=== PATIENT | female | born 1940 | race Caucasian/White ===

== ENCOUNTER → 2020-01-07 09:00 | Outpatient (CLI) | payer MEDICARE, OTHER, SELFPAY ==
[2015-03-10 17:43] VITALS: BMI 34.5
--- NOTE | 2020-01-07 09:18 | RAD_ITS ---
STUDY: X-RAY - ABDOMEN/PELVIS REASON FOR EXAM: Female, 79 years old. Pt states checkup for right kidney stones, left kidney removed TECHNIQUE: AP supine view. COMPARISON: None. FINDINGS: Normal visualized lung bases. Fecal content throughout the colon suggesting constipation. No bowel obstruction. There is no demonstrated free abdominal air. Multiple radiopaque calculi in the right kidney. Postsurgical absence of the left kidney with overlying surgical clips. Normal soft tissue structures. Bridging right lateral marginal spurs at L4-L5 disc level. No acute osseous abnormality. RAD/Abdomen Single View IMPRESSION: Multiple radiopaque calculi in the right kidney. CT IVP will be more helpful if desired. Electronically Signed: Yuri aRusch MD at 9:53 EDT , Service support ,
== END ==
PROVIDERS: PCP Family Medicine; Referring Provider Nurse Practitioner Adult Health; Visit Provider Nurse Practitioner Adult Health
DX: N20.0 Calculus of kidney (principal)
CPT/HCPCS: 74018

== ENCOUNTER → 2021-02-05 10:26 | Outpatient (CLI) | payer MEDICARE, OTHER, SELFPAY ==
--- NOTE | 2021-02-05 10:31 | RAD_ITS ---
INDICATION: CALCULUS OF KIDNEY EXAMINATION/TECHNIQUE: X-RAY - AP XR Abdomen 1 View COMPARISON: Abdominal x-ray 01/07/2020 FINDINGS: No abnormally distended air filled bowel loops or air-fluid levels suggest obstruction. Prominent stool load throughout the colon may represent constipation. Right upper quadrant calcifications, adjacent to the inferior margin of the liver suspicious for gallbladder stones. This is unchanged compared to prior exam. Surgical clips in the left upper abdomen, adjacent to the spine. Moderately advanced degenerative changes bilateral hips and lumbar spine. RAD/Abdomen Single View IMPRESSION: No evidence of obstruction. Findings suggesting possible constipation. Suspected cholelithiasis. Postsurgical and chronic degenerative changes as above. Electronically Signed: Elroy Caballero DO at 22:47 EDT Tel , Service support ,
== END ==
PROVIDERS: PCP Family Medicine; Referring Provider Nurse Practitioner Adult Health; Visit Provider Nurse Practitioner Adult Health
DX: N20.0 Calculus of kidney (principal)
CPT/HCPCS: 74018

== ENCOUNTER → 2021-02-18 12:41 | Outpatient (CLI) | payer MEDICARE, OTHER, SELFPAY ==
--- NOTE | 2021-02-18 12:44 | CT_ITS ---
INDICATION: CALC OF KINDEY EXAMINATION: CT ABDOMEN AND PELVIS WITHOUT CONTRAST TECHNIQUE: Helically acquired images were obtained of the abdomen and pelvis without oral or IV contrast. A radiation dose optimization technique was used for this scan. IV Contrast dosage and agent: None. Oral contrast: None. COMPARISON: Abdomen x-ray obtained on 02/05/2021. FINDINGS: LOWER CHEST: Lung bases are clear. No cardiomegaly or pericardial effusion. LIVER: Homogeneous. No focal mass. GALLBLADDER AND BILIARY TREE: There is a 0.8 cm calcification/stone visualized in the neck of the gallbladder. Mild gallbladder distention is seen, no evidence of gallbladder wall thickening, no evidence of pericholecystic stranding is seen. No intra- or extrahepatic biliary ductal dilation. PANCREAS: No focal cystic or solid mass. SPLEEN: Normal size without focal cystic or solid mass. ADRENAL GLANDS: No nodules. KIDNEYS AND URETERS: Surgical clips visualized in the left upper quadrant, the left kidney is absent. Limited evaluation of the right kidney due to absence of intravenous contrast demonstrates upper and lower pole cortical cysts, prominence of the pelvicalyceal system is visualized however cannot rule out superimposed the parapelvic cysts. Extensive nonobstructive right renal calculi are visualized. Tortuous proximal right ureter demonstrates mild prominence however no evidence of hydronephrosis is otherwise visualized, there are 3 calcifications visualized along the right posterolateral aspect of the urinary bladder visualized on axial series 2 image 128 with a second calcification visualized however there is no evidence of proximal hydroureter to confirm that these represent stones at the right ureterovesical junction would recommend clinical correlation and correlation with prior studies if available and if clinically indicated contrast enhanced study for optimal evaluation. PERITONEUM: No ascites or free air. No other fluid collection. BOWEL: No evidence of acute appendicitis. No stomach or bowel distension. No focal inflammatory change. LYMPH NODES: No enlarged mesenteric or retroperitoneal lymph nodes. VESSELS: Aorta is non-dilated. URINARY BLADDER: Nondistended urinary bladder, no evidence of vesical stones. REPRODUCTIVE ORGANS: No pelvic masses. ABDOMINAL WALL: No discrete abdominal or pelvic wall hernia. BONES: Degenerative bone changes seen. CT/Abdomen/Pelvis without Cont IMPRESSION: The left kidney is absent. Limited evaluation of the right kidney demonstrates multiple nonobstructive stones, pelvicalyceal prominence however this could represent superimposed parapelvic cysts, mild prominence of the proximal ureter otherwise no evidence of hydroureter is seen. 3 calcifications visualized at the level of the right ureterovesical junction. If clinically indicated would recommend a CT scan with contrast to evaluate for right renal mass, parapelvic cysts and location of the right pelvic calcifications/stones. Electronically Signed: Rhys Ansari MD at 15:23 EDT Tel , Service support ,
== END ==
PROVIDERS: PCP Family Medicine; Referring Provider Nurse Practitioner Adult Health; Visit Provider Nurse Practitioner Adult Health
DX: N20.0 Calculus of kidney (principal)
CPT/HCPCS: 74176

== ENCOUNTER → 2021-02-23 13:10 | Outpatient (CLI) | payer MEDICARE, OTHER, SELFPAY ==
--- NOTE | 2021-02-23 13:21 | EKG12_ITS ---
Test Reason : PRE OP Blood Pressure : / mmHG Vent. Rate : 087 BPM Atrial Rate : 087 BPM P-R Int : 180 ms QRS Dur : 086 ms QT Int : 370 ms P-R-T Axes : 057 004 041 degrees QTc Int : 445 ms Normal sinus rhythm Nonspecific T wave abnormality Abnormal ECG Confirmed by DAVID DENNEY, KEN ([id number]), editor farm journal CHRISTINE SUNSHINE ([id number]) on 02/24/2021 9:21:52 AM Referred By: Humza Douglas Confirmed By:KEN HERNANDEZ MD
[2021-02-23 13:49] LABS: Hematocrit 43.4 % (37-47); Hemoglobin 13.7 g/dL (12.0-15.0); Mean Corp Hgb Conc 31.6 g/dL (32-36); Mean Corpuscular Hgb 29.1 pg (27.0-32.0); Mean Corpuscular Volume 92.1 fL (81-99); Mean Platelet Vol. 10.2 fl (6.2-12.0); Platelet Count 202 K/mm3 (150-450); RBC Distribution Width CV 13.2 % (11.6-14.6); RBC Distribution Width SD 44.7 fl (35.1-43.9); Red Blood Count 4.71 M/mm3 (4.2-5.4); White Blood Count 7.2 K/mm3 (4.4-11.0)
[2021-02-23 14:21] LABS: Anion Gap 5 (5-15); BUN 34 mg/dL (7-18); Calcium,Total 9.6 mg/dL (8.5-10.1); Chloride 103 mmol/L (98-107); Creatinine, Serum 1.36 mg/dL (0.55-1.02); EST Glomerular Filtration Rate 40 mL/min (>60); Est Glom Filt Rate - Afr Amer 48 mL/min (>60); Glucose 102 mg/dL (74-106); Potassium 4.6 mmol/L (3.5-5.1); Sodium Level 138 mmol/L (136-145)
== END ==
PROVIDERS: PCP Family Medicine; Referring Provider Urology; Visit Provider Urology
DX: Z01.810 Encounter for preprocedural cardiovascular examination (principal); Z01.812 Encounter for preprocedural laboratory examination; I10 Essential (primary) hypertension
CPT/HCPCS: 36415; 80048; 85027; 93005

== ENCOUNTER → 2021-03-02 | Outpatient (CLI) | payer MEDICARE, OTHER, SELFPAY ==
--- NOTE | 2021-03-02 13:04 | CALC_PTH ---
PATIENT: JANELL HANKS LOC: [facility] U#:[id number] AGE/SX: 80/F ROOM: RE03/02/[address]: Dr. Humza Douglas MD : 1940 BED: DIS: 03/02/2021 SPEC #: [id number] RECD: 03/02/21 15:11 STATUS: FARIBA REFelicita #: [id number] RADHA: 03/02/21 13:[address]: Humza Douglas DEPT: SURGICAL PATHOLOGY RECD BY: Preston Bradley ENTERED: 03/03/21 08:46 SP TYPE: Calculi OTHR DR: Dr. Elroy Corona MD [facility] Tissues: CALCULI Procedures: Surgery Specimen Level I HEADER OPERATION: Right ureteroscopy, laser stone, right ureteral stent PRE-OP DIAGNOSIS: Calculus of right ureter TISSUE SUBMITTED: Ureteral stones GROSS DIAGNOSIS Fragments of stone, clinically ureteral stone. SJ:nirmal 03/04/2021 COMMENT If chemical analysis is requested on this specimen, please notify the laboratory. GROSS DESCRIPTION Received without fixative labeled with the patient's name and designated ureteral stone. The specimen consists of two fragments of brownish-black stone measuring in aggregate 1 x 0.5 x 0.5 cm. The specimen is for gross identification only. The entire specimen is saved if stone analysis is requested. / SJ:nirmal 03/03/21 CPT: 78460
== END | disposition home or self-care (01) ==
LOC: LABSPEC 15:26
PROVIDERS: PCP Family Medicine; Visit Provider Urology
DX: N20.1 Calculus of ureter (principal)
CPT/HCPCS: 88300

== ENCOUNTER → 2021-04-29 12:36 | Outpatient (CLI) | payer MEDICARE, OTHER, SELFPAY ==
--- NOTE | 2021-04-29 12:38 | CT_ITS ---
STUDY: CT ABDOMEN AND PELVIS WITHOUT CONTRAST REASON FOR EXAM: Female, 80 years old. Nephrolithiasis. 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 RADIATION DOSAGE (If Supplied By Facility): CTDIvol = ( 18.18 ) mGy, DLP = ( 831.20 ) mGycm TECHNIQUE: Transaxial images were obtained from the dome of the diaphragm to the symphysis pubis without oral contrast, and without intravenous contrast. Sagittal and coronal images were reconstructed. Individualized dose optimization techniques were used for this CT. COMPARISON: Comparison is made with prior study dated 02/18/2021. FINDINGS: The visualized lung bases are unremarkable. The visualized portions of the heart are within normal limits. Normal liver. Normal gallbladder and extrahepatic biliary system. Normal spleen. There is diffuse atrophy of the pancreas. Normal bilateral adrenal glands. Stable multiple right intrarenal calculi. The largest calculus measures 9.3 mm and is in the upper and midportion of the kidney. Persistent 8.7 mm calculus at the right ureterovesical junction. No other calculus is seen at that site. Persistent 3.8 cm hypodensity in the upper pole of the right kidney suggestive of a cyst. The patient is status post left nephrectomy. Normal visualized stomach. Normal small intestine. There are multiple colonic diverticula consistent with diverticulosis. The appendix is visualized and appears normal. There is diffuse atherosclerotic calcification of the abdominal aorta and its major visceral branches, without a demonstrated aneurysm. Normal inferior vena cava. Normal retroperitoneum. Normal urinary bladder. There is absence of the uterus consistent with a prior hysterectomy. Normal abdominal wall. There are diffuse degenerative changes of the visualized lumbar spine. CT/Abdomen/Pelvis without Cont IMPRESSION: Persistent 8.7 mm calculus at the right ureterovesical junction. Right intrarenal nonobstructive calculi. The patient is status post left nephrectomy. Electronically Signed: Marty Burgess MD at 13:30 EST , Service support ,
[2021-04-29 14:54] LABS: Anion Gap 3 (5-15); BUN 37 mg/dL (7-18); BUN/Creat Ratio 29.1 RATIO (10-20); Calcium,Total 9.7 mg/dL (8.5-10.1); Chloride 108 mmol/L (98-107); Creatinine, Serum 1.27 mg/dL (0.55-1.02); EST Glomerular Filtration Rate 43 mL/min (>60); Est Glom Filt Rate - Afr Amer 52 mL/min (>60); Glucose 100 mg/dL (74-106); Potassium 4.1 mmol/L (3.5-5.1); Sodium Level 141 mmol/L (136-145)
== END ==
PROVIDERS: PCP Family Medicine; Referring Provider Urology; Visit Provider Urology
DX: N20.0 Calculus of kidney (principal)
CPT/HCPCS: 36415; 74176; 80048

== ENCOUNTER 2021-05-12 10:24 | Day surgery (SDC) | payer MEDICARE, OTHER, SELFPAY ==
--- NOTE | 2021-05-12 | CALC_PTH ---
PATIENT: JANELL HANKS LOC: [facility] [place] U#:[id number] AGE/SX: 80/F ROOM: RE05/12/[address]: Dr. Humza Douglas MD : 1940 BED: DIS: 05/12/2021 SPEC #: [id number] RECD: 05/12/21 13:27 STATUS: FARIBA REFelicita #: [id number] RADHA: 05/12/21 00:[address]: Humza Douglas DEPT: SURGICAL PATHOLOGY RECD BY: Ana Cristina Carter ENTERED: 05/12/21 13:27 SP TYPE: Calculi OTHR DR: Dr. Elroy Corona MD Tissues: CALCULI Procedures: Surgery Specimen Level I HEADER OPERATION: Right ureteral calculus PRE-OP DIAGNOSIS: Right ureteral calculus TISSUE SUBMITTED: Right ureteral calculus GROSS DIAGNOSIS Fragments of stone, clinically right ureteral calculi, submitted for analysis. SJ:nirmal 05/13/2021 COMMENT The calculus is submitted in its entirety for chemical stone analysis. The results from this study will be reported separately. GROSS DESCRIPTION Received without fixative labeled with the patient's name and designated right ureteral calculi. The specimen consists of multiple fragments of brownish-black stone measuring in aggregate 0.5 x 0.2 x 0.2 cm. The entire specimen is submitted for stone analysis. / SJ:nirmal 05/12/2021 CPT: 76910
[2021-05-12 10:56] VITALS: BP 169/94; PULSE 81; RESP 16; TEMP 36.4; O2SAT 100; BMI 34.0
[2021-05-12] MEDS: Lactated Ringers 1,000 ML 15 ML IV (11:04)
--- NOTE | 2021-05-12 13:05 | PCM.HP.STD ---
HPI - General HPI Narrative JANELL HANKS, is a 80 F who presents to laser a distal right ureteral calculi, she has solitary right kidney PFSH Medical History (Updated 05/11/21 @ 08:34 by Annette Salas) Bladder disease Cancer Employs prosthetic leg History of renal disease History of steroid therapy Non-smoker Uses wheelchair Wears dentures Wears glasses Wears hearing aid Home Medications imipramine HCl 75 mg PO QHS 01/08/15 [History Last Taken Unknown] multivitamin [Daily Multiple] 1 ea PO DAILY 01/08/15 [History Last Taken Unknown] cephalexin 500 mg PO BID #6 cap 05/12/21 [Rx Last Taken Unknown] Allergy/AdvReac Type Severity Reaction Status Date / Time amoxicillin trihydrate AdvReac Rash Verified 05/12/21 10:50 [From Augmentin] Gadolinium-MRI Contrast AdvReac Unknown Verified 05/12/21 10:50 Medium [DYE] Tetanus Vaccines and Toxoid AdvReac Unknown Verified 05/12/21 10:50 [Tetanus Vaccines & Toxoid] venom-honey bee AdvReac Rash Verified 05/12/21 10:50 [bee venom (honey bee)] Surgical History (Updated 05/11/21 @ 08:34 by Annette Salas) 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
--- NOTE | 2021-05-12 13:06 | PCM.DC ---
Discharge Instructions Diet Discharge Diet: No restrictions Activity Discharge Activity: Return to Normal Activity and May Not Drive (while taking narcotic pain medications.) Dressing / Incision Call your doctor if you observe: Fever of 101 or Higher Follow Up Care Please Follow Up With: Humza Douglas MD When: Call [phone] for an appointment Test Results: Test results from this visit will be discussed in further detail at your follow-up appointment, if applicable. Discharge Plan Admission Primary Reason for Your Visit: laser stones, no stent Attending Provider: Humza Douglas Primary Care Provider: Elroy Corona Discharge Orders/Prescriptions Prescriptions: New cephalexin 500 mg capsule 500 mg PO BID Qty: 6 RF: 0 Continued multivitamin [Daily Multiple] 1 EACH tablet 1 ea PO DAILY RF: 0 imipramine HCl 25 MG tablet 75 mg PO QHS RF: 0 Referrals / Follow Up: Humza Douglas MD [STAFF PHYSICIAN] - Elroy Corona MD [Primary Care Provider] - Disposition Disposition (needs filled in before D/C Order can be placed): Home, Self Care
--- NOTE | 2021-05-12 13:06 | PCM.OPRPT ---
Report of Operation Date of Procedure: 05/12/21 Pre-Operative Diagnosis: right ureteral calculi Post-Operative Diagnosis: same Surgery/Procedure Performed:: cystoscopy, right ureteroscopy laser stone, no stent, retrograde pyelogram and interpretation of flouroscopic images. Description of Surgical Findings:: This is a patient who presents to the hospital for treatment for an obstructing distal ureter calculi. I discussed with the patient how the surgery would be performed and we reviewed the risks and benefits of the surgery. The risk and benefits include the risk of failure to remove the stone completely and that the patient may need multiple procedures. We discussed the risk of an infection, the risk of bleeding. We discussed the very rare risk of serious complicated injury to the ureter. The patient understands that if the stone is not able to be removed safely that we may abort the procedure and place a stent. After full discussion and all questions address with the patient the consent form was signed the side was marked appropriately and the patient was taken back to the operating room for the procedure. The patient was taken back to the operating room. After induction of anesthesia by the anesthesiology team the patient was placed in dorsolithotomy position. The genitals were prepped and draped in usual sterile fashion. I went into the bladder with a 21 Slovak rigid cystourethroscope through the urethra. Upon entering the bladder I inspected the trigone the left and right ureteral orifice and the bladder itself. I then cannulated the Right ureteral orifice and advanced a 0.038 Glidewire up into the kidney. Then over the Glidewire I advanced a 5 Fr Ureteral catheter and performed a retrograde pyelogram with about 10cc of contrast, to delineate the anatomy and identify the stone location. I went in with the mitchel rigide 7.5fr ureteroscope. I was able to go inside with the 7.5Fr mitchel rigid utereroscope and I pulled out the working guidewire and then through the 7.5 fr simirigid ureteroscope I engage the stone in the distal ureter with laser lithotripsy using a 270miron laser fiber with energy setting of 6 Hertz and 1.2 J until the stone was lasered into tiny little pieces that should pass on their own. A retrograde pyelogram was performed with 10cc of contrast and no extravasation of contrast or perforation was identified in the ureter there was some mild irritation of the ureter where the stone was located. I then backed out of the ureter left the wire in place. I then drained the patient's bladder and the cystoscope was removed and the patient was taken back to the recovery room in good position. The patient was given discharge instructions to call the office for instructions on when to come to the office for a post op check. Surgeon: ksenia Type of Anesthesia: General Drains: none Admit VTE Documentation VTE Present on Admission: No VTE Mechan Device Prophylaxis: SCD's VTE Pharm Prophylaxis ordered?: No
[2021-05-12 13:23] VITALS: BP 149/80; BP 169/94; PULSE 75; RESP 18; TEMP 35.9; O2SAT 100
[2021-05-12 13:30] VITALS: BP 150/75; BP 169/94; PULSE 72; RESP 18; O2SAT 99
[2021-05-12 13:45] VITALS: BP 155/80; BP 169/94; PULSE 67; RESP 18; O2SAT 98
[2021-05-12 13:59] VITALS: BP 164/90; BP 169/94; PULSE 68; RESP 18; TEMP 35.9
[2021-05-12 14:30] VITALS: BP 169/94; BP 175/97; PULSE 78; RESP 16; TEMP 36.6; O2SAT 96
[2021-05-20 13:28] LABS: Source RIGHT URETERAL
[2021-05-20 13:30] LABS: Ca Oxalate, Monohydrate 90
== END 2021-05-12 14:45 | disposition home or self-care (01) ==
LOC: SDC 10:26 → AC 10:29
PROVIDERS: PCP Family Medicine; Referring Provider Urology; Visit Provider Urology
PROC: 0TJ98ZZ Inspection of Ureter, Via Natural or Artificial Opening Endoscopic (ICD-10-PCS; CPT 52352; principal; 2021-05-12 12:25)
DX: N20.1 Calculus of ureter (principal); Z90.10 Acquired absence of unspecified breast and nipple; Z90.710 Acquired absence of both cervix and uterus
CPT/HCPCS: 52353; 76000; 82360; 88300; J7120; J2405

== ENCOUNTER 2021-06-15 14:17 | Outpatient (CLI) | payer MEDICARE, OTHER, SELFPAY ==
[2021-06-15 15:12] LABS: Anion Gap 5 (5-15); BUN 30 mg/dL (7-18); BUN/Creat Ratio 21.4 RATIO (10-20); Calcium,Total 9.5 mg/dL (8.5-10.1); Chloride 103 mmol/L (98-107); EST Glomerular Filtration Rate 38 mL/min (>60); Est Glom Filt Rate - Afr Amer 46 mL/min (>60); Glucose 94 mg/dL (74-106); Potassium 4.4 mmol/L (3.5-5.1); Sodium Level 136 mmol/L (136-145)
== END 2021-06-15 23:59 | disposition short-term general hospital (02) ==
LOC: LAB 14:19
PROVIDERS: PCP Family Medicine; Visit Provider Urology
DX: N20.0 Calculus of kidney (principal)
CPT/HCPCS: 36415; 80048

== ENCOUNTER → 2023-02-21 | Outpatient (CLI) | payer MEDICARE, OTHER, SELFPAY | END | disposition home or self-care (01) | LOC: LABSPEC 11:38 | PROVIDERS: PCP Family Medicine; Referring Provider Urology; Visit Provider Urology | DX: R31.9 Hematuria, unspecified (principal) | CPT/HCPCS: 87077; 87086; 87088; 87186 ==